=== PATIENT | male | born 1935 | race Caucasian/White ===

== ENCOUNTER 2017-01-06 14:23 | Inpatient (IN) | payer MEDICARE, MEDICAID ==
[~2017-01-06] VITALS: Ht 180.3 cm; Wt 94.8 kg
--- NOTE | ~2017-01-06 | PR ---
[place], [place] PROGRESS NOTE NAME: CORKY SIMMONS SR UNIT #: [id number] ROOM: 316 DOCTOR: BEATRIZ AVILA MD BIRTHDATE: [birth year] DOS: 01/14/2017 CHIEF COMPLAINT: "Morning, I'm so tired." SUMMARY OF THE VISIT: The patient was very somnolent, sitting in a Whitney chair looking at newspaper and watching television. He was dosing on and off. Nurses report, he had a very good day, but as the evening progressed, he became more confused, more verbally and physically combative to the point where he was yelling at the top of his lungs all night long and received p.r.n. intervention without any benefit. He now is somewhat somnolent as he did not sleep well last night. He seems to have his days and nights mixed up. MENTAL STATUS: It is limited due to his somnolence. He was pleasant with me. His responses were very short, however, and simple and at times he did not respond. PLAN: I will continue to push the Exelon patch into a therapeutic range, bringing it from 4.6 to 9.5 mg daily. I will discontinue the daytime Seroquel as his daytime hours seem to be improved, maintaining just the nighttime Seroquel for his mood stability and to decrease impulsivity. I will add trazodone 150 mg at bedtime to aid sleep and to act as an antidepressant. We will engage in individual and hastings milieu activity, returning to the least restrictive environment when stable. BEATRIZ AVILA MD CM:PNTRANS [id number] BEATRIZ AVILA MD 01/14/17 1146 interface
--- NOTE | ~2017-01-06 | PR ---
[place], [place] PROGRESS NOTE NAME: CORKY SIMMONS SR UNIT #: [id number] ROOM: 316 DOCTOR: BEATRIZ AVILA MD BIRTHDATE: [birth year] DOS: 01/12/2017 CHIEF COMPLAINT: "Good morning, is breakfast coming? SUMMARY OF THE VISIT: The patient was interviewed in the dining area where he was sitting waiting for breakfast. He engaged in superficial, but pleasant conversation. He was somewhat negative, but that is baseline, but he did engage in conversation and was much more goal directed. Of note, there were no chanting or yelling noted and overall the nurses report that he is trending strongly towards improvement and that his behavior seems to be improving overall. Nurses do note at times that his nighttime behavior seems to be problematic. MENTAL STATUS: He is alert and oriented to self. He may realize he is in the hospital, but he is certainly not oriented to time. Mood does seem to be trending towards euthymia. Affect is more appropriate. Responses are short and simple and at times inappropriate. He does process slowly and short term memory is poor. PLAN: I will go ahead and increase his Seroquel from 50 mg 3 times a day to 50 mg twice a day and 100 mg at bedtime. My hope is that the slightly higher dose of Seroquel nighttime will aid his sleep and also decrease some of the mood lability that has become problematic at night, helping us limit the use of p.r.n. intervention at nighttime. We will continue to engage him in individual and hastings milieu activity with the ultimate plan to return to [facility] [place] when psychiatrically stable. BEATRIZ AVILA MD CM:PNTRANS [id number] [id number] BEATRIZ AVILA MD 01/12/17 1054 interface
--- NOTE | ~2017-01-06 | PR ---
[place], [place] PROGRESS NOTE NAME: CORKY SIMMONS SR [facility] [id number] UNIT #: [id number] ROOM: 316 DOCTOR: BEATRIZ AVILA MD BIRTHDATE: [birth year] DOS: 01/11/2017 CHIEF COMPLAINT: "Good morning, I want my breakfast." SUMMARY OF THE VISIT: The patient was interviewed as he sat in the dining area waiting for breakfast. He was bright and pleasant with me for a change, stating that he slept well and was ready for his breakfast. I did talk to nursing and they did report that he did require p.r.n. Geodon this morning because he was very irritable and short-fused. He seems to have had a rather significant positive response to the Geodon. He has also had a positive response to the Seroquel and that seems to have caused the yelling and mood swings and irritability to lessen as well. MENTAL STATUS: He is alert and oriented to person, possibly place, but not time. Mood does seem to be trending towards euthymia, and overall his affect seems more pleasant. There are no overt auditory or visual hallucinations, delusions or paranoia. Memory remains severely affected. PLAN: Given the fact that the Seroquel has helped but he requires p.r.n. Geodon with similar benefit, I will increase his Seroquel from 25 mg 3 times a day to 50 mg 3 times a day to see if this can sustain benefit more consistently. We will monitor for risks and benefits. Engage in individual and hastings milieu activity with the plan to return to [facility] when psychiatrically stable. BEATRIZ AVILA MD CM:PNTRANS 1139 BEATRIZ AVILA MD 01/11/17 1138 interface
--- NOTE | ~2017-01-06 | PR ---
[place], [place] PROGRESS NOTE NAME: CORK[facility] SIMMONS SR [id number] UNIT #: [id number] ROOM: 316 DOCTOR: BEATRIZ AVILA MD BIRTHDATE: [birth year] DOS: 01/13/2017 CHIEF COMPLAINT: "Good morning, thank, when is breakfast." SUMMARY OF THE VISIT: The patient was interviewed as he sat in the dining area, reclining in a Whitney chair. He engaged readily in conversation that was bright, but pleasant, is very superficial, responses tended to be short and simple. On another note, the nurses report that his behavior yesterday was very much in control until approximately 6:00 p.m. when he began to gradually escalate. He seems to sundown at that point in time and become verbally and physically aggressive. MENTAL STATUS: This morning, he is alert and oriented to person, not to place or time. Mood was fairly pleasant and bright. There are no symptoms of hypomania or shwetha at this time. There were no overt auditory or visual hallucinations. No delusions were voiced. Short term memory remains poor. PLAN: I will discontinue his Aricept in lieu of Exelon patch at this point. I do believe that this is a much better medication to combat the declining ADLs and behavior seen with Alzheimer's. I will renew his Ativan. I will also change his Depakote from 500 mg 3 times a day to 500 mg in the morning and 1000 mg at 6 p.m. to attempt to head off some of the sundowning symptoms. If this is not effective, we will look at other interventions to prevent the sundowning behavior. BEATRIZ AVILA MD CM:PNTRANS 0722 7 BEATRIZ AVILA MD 01/13/1707 interface
--- NOTE | ~2017-01-06 | PR ---
[place], [place] PROGRESS NOTE NAME: [facility]ORK[facility]S [id number] UNIT #: [id number] ROOM: 316 DOCTOR: BEATRIZ AVILA MD BIRTHDATE: [birth year] DOS: 01/08/2017 CHIEF COMPLAINT: "I just want to sleep you understand that I just want to sleep." SUMMARY OF THE VISIT: The patient was interviewed in his room. He was resting in bed. He was giving the nurse that was working with him a very difficult time to take his medicine. Eventually, he put the medicines in his mouth and then spit them out, he yelled at her and myself stating he just wanted to be left alone and sleep. When I asked him other questions, he again yelled out, I just want to sleep. He was not cooperative beyond that. MENTAL STATUS: It was limited due to his lack of cooperation. He is certainly alert and oriented to self. Mood remains labile. Affect inappropriate. He is very short fused and terse. I did not elicit any psychotic symptoms from him, memory remains poor. PLAN: His valproic acid level is subtherapeutic at 25.7. I will increase him on the Depakote sprinkles to 500 mg 3 times daily in an effort to bring the level into a range of 60-80 and see if we can decrease some of his excessive mood lability. We will attempt to engage in individual and hastings milieu activity with the plan to return to [facility] when psychiatrically stable. BEATRIZ AVILA MD CM:PNTRANS 1115 1205 BEATRIZ AVILA MD 01/08/17 1205 interface
--- NOTE | ~2017-01-06 | PR ---
[place], [place] PROGRESS NOTE NAME: CORKY SIMMONS SR UNIT #: [id number] ROOM: 316 DOCTOR: BEATRIZ AVILA MD BIRTHDATE: [birth year] DOS: 01/10/2017 CHIEF COMPLAINT: "Morning." SUMMARY OF THE VISIT: The patient was interviewed as he rested in his Whitney chair. He was sleeping upon approach, but awoke readily and engaged in very brief superficial conversation. He was much more pleasant and engaging than he had been previously and was not dismissive or negative as he had been. Nurses report that after he was receiving the Seroquel yesterday, he was much calmer and was able to be redirected. He was not yelling out as he had been the previous several days. He slept soundly through the night as well. MENTAL STATUS: The patient is alert and oriented to self. It is unclear if he realizes he is in the hospital. He is certainly not oriented to time. Mood does seem to be trending towards euthymia and affect is more appropriate. There are no symptoms of hypomania or shwetha. There are no auditory or visual hallucinations. No delusions were voiced. No paranoia was present. Short term memory remains poor. PLAN: At the present time, I will maintain his current psychotropic regimen and monitor especially over the next 24 hours to see if this benefit sustains itself or further medication adjustment is warranted. We will engage in individual and hastings milieu activity with the ultimate plan to return back to [facility] when psychiatrically stable. BEATRIZ AVILA MD CM:PNTRANS 1022 [id number] BEATRIZ AVILA MD 01/10/17 1517 interface
--- NOTE | ~2017-01-06 | PR ---
[place], [place] PROGRESS NOTE NAME: CORKY SIMMONS SR UNIT #: [id number] ROOM: 316 DOCTOR: BEATRIZ AVILA MD BIRTHDATE: [birth year] DOS: 01/09/2017 CHIEF COMPLAINT: "Good morning, I don't want to talk this morning." SUMMARY OF THE VISIT: The patient was interviewed in the group therapy room where he was reclining in a Whitney chair. He was resting at first, but did awake initially to engage in brief conversation. He continues to be rather confrontational and irritable and reported to me that he did not want to talk to me this morning. Nurses report he continues to have significant outbursts throughout the day where he will yell nonstop and does not respond to redirection. have minimal to no affect. He continues to exhibit extreme mood lability, agitation and episodic aggression. MENTAL STATUS: It is limited due to his total lack of cooperation. He is at least oriented to self. It is unclear if he realizes he is in the hospital and he does not appear to be oriented to time. Mood does seem to be rather labile and affect at times inappropriate. He shifts his mood very quickly and overall is more negative and nihilistic. He does process slowly and his responses tended to be short and terse with me. Short term memory does seem to be affected and is very poor. PLAN: I will go ahead and discontinue his Nuedexta. This has been present with him and he continues to exhibit significant psychopathology despite it being on board. By discontinuing it, it will allow me to use other medications more aggressively. I will add Seroquel 25 mg 3 times daily to have a mood stabilizing affect, to decrease his mood lability and agitation. We are also providing some level of antianxiety effect. We will engage in individual and hastings milieu activity with the plan to return to [facility] when psychiatrically stable. BEATRIZ AVILA MD CM:PNTRANS 0836 1250 BEATRIZ AVILA MD 01/09/17 1250 interface
--- NOTE | ~2017-01-06 | DS ---
[place], [place] DISCHARGE SUMMARY NAME: CORK[facility] SIMMONS [facility] [id number] UNIT #: [id number] ROOM: 316 DOCTOR: BEATRIZ AVILA MD BIRTHDATE: [birth year] DOS: 01/15/2017 CHIEF COMPLAINT: "Where am I, why am I here, where is my ?" HISTORY OF PRESENT ILLNESS: This is an 81-year-old white male known to me from [facility] in [place], [place]. The patient is admitted to the [facility] Unit at [facility] due to increased sexually inappropriate behavior as well as increased yelling out and mood lability. The patient's behavior has been such that he is putting other residents and staff at risk for harm, so he is admitted now to rule out organic factors to attempt to stabilize on medication, ultimately returning back to [employer] when stable. PAST MEDICAL HISTORY: Remarkable for vascular dementia, atrial fibrillation, hyperlipidemia, hypertension, diabetes, left bundle branch block, sick sinus syndrome, V-tach, CAD, OA, and pseudobulbar affect. SUMMARY OF HOSPITAL COURSE: The patient was admitted to the unit where initially his Depakote was increased from 125 mg 3 times daily to 250 mg twice daily and 500 mg at bedtime, Celexa was discontinued and his Nuedexta likewise was discontinued. Aricept later in his stay was discontinued in lieu of Exelon patch 4.6 mg a day and this was increased to its maximum dose while in the hospital of 9.5. He continued to have his days and nights mixed up and would be up through the night, screaming and then be very tired during the day and napping. He had been started on Seroquel 50 mg 3 times daily and this was increased later to 50 twice a day and 100 at bedtime, later it was maintained just 100 at bedtime and the daytime dose was discontinued to prevent the possibility of daytime somnolence. Eventually trazodone was utilized at a dose of 150 mg at bedtime to aid sleep and combat depression. With this combination, he slept finally through the night consistently for good 6 hours. He woke up the next day feeling much more refreshed and was much calmer and quieter and redirectable. He had improved sufficiently by the time of discharge and was tolerating the medications well and it was felt that he could return to [employer] at this point and have further followup by myself and by my nurse practitioners. MENTAL STATUS AT DISCHARGE: The patient is alert and oriented to person, possibly place, but not time. Mood does seem to be strongly trending towards euthymia and affect was much more appropriate. There are no symptoms suggestive of shwetha or hypomania. There are no auditory or visual hallucinations, delusions or paranoia. Short-term memory is exceedingly poor, otherwise he is intact. FINAL DIAGNOSES: Major depression, recurrent, and Alzheimer's dementia. PLAN: All prescriptions have been printed and will be sent with him. I will follow him upon his return to [employer]. [place], [place] DISCHARGE SUMMARY NAME: CORKY SIMMONS SR [facility] #: [id number] UNIT #: [id number] ROOM: [facility] DOCTOR: BEATRIZ AVILA MD BIRTHDATE: [birth year] BEATRIZ AVILA MD CM:DISCHARG 0945 1133 BEATRIZ AVILA MD 01/15/17 1132 interface
[2017-01-06] MEDS ORDERED: VISTARIL25 MG PO (14:54)
[2017-01-06] MEDS ORDERED: NOVOLIN 70100 UNIT/1 SQ ×2 (14:57→15:07)
[2017-01-06] MEDS ORDERED: DEEP SEA44 ML NAS ×2 (14:59→15:14)
[2017-01-06] MEDS ORDERED: TOPROL XL50 M1 PO (15:00)
[2017-01-06] MEDS ORDERED: VITAMIN D50000 UNIT PO (15:01)
[2017-01-06] MEDS ORDERED: NAMZARIC 28 MG1 EACH PO (15:04)
[2017-01-06] MEDS ORDERED: DEPAKOTE SPRIN125 MG PO (15:05)
[2017-01-06] MEDS ORDERED: NUED1CAP PO (15:05)
[2017-01-06] MEDS ORDERED: XARE20MG PO (15:09)
[2017-01-06] MEDS ORDERED: ATIVAN0.5 MG PO ×2 (15:10→15:16)
[2017-01-06] MEDS ORDERED: ATIVAN1 MG PO (15:10)
[2017-01-06] MEDS ORDERED: CELEXA20 MG PO (15:11)
[2017-01-06] MEDS ORDERED: DAILY VALUE1 EACH PO (15:12)
[2017-01-06] MEDS ORDERED: COZAAR100 MG PO (15:13)
[2017-01-06 16:43] VITALS: BP 130/62
--- NOTE | 2017-01-06 17:00 | NUR ---
PATIENT IS ALERT AND ORIENT TO SELF, ABLE TO VOICE NEED. DIFFICULTY NOTED DURING ASSESSMENT WITH ANSWERING QUESTIONS WITH CONFUSION, WANTING TO KNOW WHAT IS GOING ON REPEATEDLY. YELLING MOST OF THE TIME, REDIRECTED SEVERAL TIMES THROUGHTOUT INTERVIEW PROCESS, SHOWING FIST AND VERBALLY AGGRESSIVE TOWARDS NURSE; 1:1 PROVIDED, DRINK OFFERED AND MEAL ORDERED. DR. SCHWARZ ON UNIT TO ASSESS PATIENT. PRN ATIVAN 1 MG PO GIVEN AT THIS TIME FOR VERBAL AGGRESSION AND SHOWING FIST TO THREATENING STAFF.
--- NOTE | 2017-01-06 17:45 | NUR ---
ASSISTED PATIENT TO ROOM AND FOR TOILETING NEEDS. URINE COLLECTED VIA CLEAN CATCH, STRAW COLOR URINE WITH NO SEDIMENT AND COLLECTION SENT TO LAB. ASSISTED PATIENT TO BED AT THIS TIME.
--- NOTE | 2017-01-06 17:57 | NUR ---
IRIS CRUZ,CORKY Rizo a 81 year old M admitted via wheel chair from the ADMITTING as a voluntary admission BY VALERY. Arrived on unit at 1630. ALLERGIES: NKA. Vital signs are: 98.2-78-18 130/62. The client signed the following forms with stated understanding: Authorization For The Release of Medical Information, Clothing List, Consent to Voluntary Admission and Hospitalization, Consent and Release Forms/Receipt of Rights, Acknowledgement of Advance Directive Information, Behavioral Health Consent Form, and Informed Consent of Medications. Admitted under the services of Dr. AUSTIN HOPPER,[facility]. A search was conducted and hazardous articles were removed. Client was oriented to the unit. TODD WILL
--- NOTE | 2017-01-06 18:05 | NUR ---
PRN ATIVAN EFFECTIVE, PATIENT LYING IN BED, NO FURTHER AGGRESSION OR YELLING OUTBURST NOTED AT THIS TIME.
[2017-01-06 18:19] LABS: BILIRUBIN NEGATIVE (NEGATIVE); BLOOD TRACE-INTACT (NEGATIVE); CLARITY CLEAR (CLEAR); COLOR YELLOW (YELLOW); GLUCOSE NEGATIVE (NEGATIVE); KETONE TRACE (NEGATIVE); LEUKO ESTERASE NEGATIVE (NEGATIVE); NITRITE NEGATIVE (NEGATIVE)
[2017-01-06 18:36] LABS: BACTERIA TRACE; RBC 0-2 rbc/hpf (0-2)
[2017-01-06 20:25] VITALS: BP 149/75
--- NOTE | 2017-01-07 04:24 | NUR ---
NURSE WAS MAKING ROUNDS. NOTED PT GETTING UP OUT OF BED. PT PULLED HIS PERSONAL ALARM OFF HIMSELF AND CONTINUED TO GET OUT OF BED. PT WAS ASSISTED TO THE RESTROOM AND BACK TO BED.
--- NOTE | 2017-01-07 06:09 | NUR ---
PT SLEPT APPROXIMATELY 7 HOURS INTERRUPTED THIS SHIFT. NO S/S OF DISTRESS NTOED. NO C/O PAIN. Q15 MINUTE SAFTEY CHECKS MAINTAINED. SEE [facility] FOR SPECIFIC MONITORING. PT YELLING I WANT TO GO HOME AND YELLING OUT FOR HIS . EASILY REDIRECTED. PT HAS BEEN NOTED TO BE REMOVING HIS PERSONAL ALARMS. RETAUGHT PT ABOUT HIS ALARMS AND THE SAFETY OF THEM.
--- NOTE | 2017-01-07 06:12 | NUR ---
24 HR chart check completed.
[2017-01-07 06:29] LABS: BASO % 0.7 % (0.0-1.0); EOS # 0.2 10*3/uL (0.0-0.4); EOS % 3.4 % (1.0-4.0); HEMATOCRIT 37.4 % (42.0-52.0); HEMOGLOBIN 12.3 g/dl (14.0-18.0); LYMPH # 1.9 10*3/uL (1.3-4.4); LYMPH % 32.8 % (27.0-41.0); MEAN CELL VOLUME 87.6 fl (80.0-94.0); MEAN CORPUSCULAR HGB 28.8 pg (27.0-31.0); MEAN CORPUSCULAR HGB CONC 32.9 g/dl (33.0-37.0); MEAN PLATELET VOLUME 10.4 fl (9.6-12.3); MONO # 0.7 10*3/uL (0.1-1.0); MONO % 11.5 % (3.0-9.0); NEUT % 51.4 % (47.0-73.0); PLATELET COUNT AUTOMATED 166 10*3/uL (130-400); RED BLOOD COUNT 4.27 10*6/uL (4.50-5.90); RED CELL DISTRI WIDTH 13.9 % (0-14.5); WHITE BLOOD COUNT 5.9 10*3/uL (4.8-10.8)
[2017-01-07 06:59] LABS: ALBUMIN 2.8 gm/dl (3.1-4.5); ALKALINE PHOSPHATASE 59 U/L (45-117); BUN 15 mg/dl (7-24); CHLORIDE 104 mmol/L (98-107); CHOLESTEROL 124 mg/dL (<200); HDL CHOLESTEROL 38 mg/dl (40-60); LDL CHOLESTEROL 67 mg/dL (9-159); POTASSIUM 4.5 mmol/L (3.5-5.1); SGOT/AST 29 IU/L (3-35); SGPT/ALT 22 U/L (12-78); SODIUM 141 mmol/L (136-145); TOTAL PROTEIN 6.2 gm/dL (6.4-8.2); TRIGLYCERIDES 94 mg/dl (<150); VALPROIC ACID (DEPAKENE) 25.7 ug/ml (50-100); VLDL CHOLESTEROL 19 mg/dL (6-40)
[2017-01-07 07:18] LABS: VITAMIN D, 25-HYDROXY 34.9 ng/mL (30-100)
[2017-01-07 08:07] VITALS: BP 143/78
--- NOTE | 2017-01-07 08:48 | NUR ---
PT WALKING UP AND DOWN THE [place] SCREAMING FOR HIS , PT NOT REDIRECTING AT ALL, TRIED TO REDIRECT SEVERAL TIMES, PT IS BEING DISRUPTIVE, INTRUSIVE, PT RECEIVED IM AVITAN, WILLINGLY.
--- NOTE | 2017-01-07 17:38 | NUR ---
1 MG IM ATIVAN GIVEN IN LEFT DELTOID, PT GETTING INCREASINGLY RESTLESS, AGGITATED, PULLED U FIST TO MILEU, PICKED UP WALKER TO [facility] TO STRIKE HER. PT TOOK ATIVAN WILLNGLY
--- NOTE | 2017-01-07 21:00 | NUR ---
HS BEDSIDE GLUCOSE 241
[2017-01-07 21:15] VITALS: BP 120/68
--- NOTE | 2017-01-07 23:05 | NUR ---
24 HR chart check completed.
--- NOTE | 2017-01-08 06:11 | NUR ---
PT HAS BEEN OBSERVED ON Q 15 MIN CHECKS & HAS SLEPT QUIETLY THROUGHOUT THE SHIFT PAST 2099.
--- NOTE | 2017-01-08 06:13 | NUR ---
PT HAS BEEN OBSERVED ON Q 15 MIN CHECKS & HAS SLEPT WITH 3 BRIEF AWAKENINGS TO GO TO THE BATHROOM WITH STAFF ASSISTANCE. CONTINENT OF URINE X3. HAS YELLED OUT A FEW TIMES FOR HIS & HAS BEEN REDIRECTED.
--- NOTE | 2017-01-08 06:55 | NUR ---
AM BEDSIDE GLUCOSE 80
[2017-01-08 09:37] VITALS: BP 132/62
--- NOTE | 2017-01-08 09:57 | NUR ---
PT REFUSED NASAL SPRAY, SPIT 1 PILL OUT ON FLOOR.
--- NOTE | 2017-01-08 13:44 | NUR ---
Socializing This is sunday with new patients. I like to talk with patients to find out thier likes and dislikes, if they have children or pets etc.. Patient was in bed when i tried to encourage patient to attend group. Patient was very agitated and refused yelling that he was not coming he wanted to sleep. Patient was left alone to sleep
--- NOTE | 2017-01-08 14:04 | NUR ---
Marsha from [employer] called back and states that pt. is traditional medicare and will not need a pre-cert.
--- NOTE | 2017-01-08 14:32 | NUR ---
PT YELLING OUT, RAISING FIST AT STAFF. 1:1 GIVEN, SNACK GIVEN, PT TOILETED, ALL INTERVENTIONS INEFFECTIVE. PT MEDICATED WITH GEODON 20 IM PRN.
--- NOTE | 2017-01-08 16:00 | NUR ---
GEODON SLIGHTLY EFFECTIVE. PT YELLING OUT LESS FREQUENTLY.
[2017-01-08 20:00] VITALS: BP 119/55
--- NOTE | 2017-01-08 21:00 | NUR ---
HS BEDSIDE GLUCOSE 209
--- NOTE | 2017-01-08 22:10 | NUR ---
EXTREMELY DISRUPTIVE TO UNIT. CONTINUES TO SCREAM OUT "JADE" HAVE WALKED TO BATHROOM 3 TIMES SINCE 8PM WITH VOIDING ONLY ONCE. UNABLE TO REDIRECT. INCREASED AGGITATION AND FLIPPING NURSES OFF WHEN REDIRECTED. MOVED TO MARVA CHAIR AND QUIET ROOM MANY CLIENTS COMPLAINING ABOUT BEING UNABLE TO SLEE.
--- NOTE | 2017-01-08 22:55 | NUR ---
GEODON GIVEN PER ORDERS FOR INCREASED AGGRESSION
--- NOTE | 2017-01-08 23:31 | NUR ---
APPEARS GEODON EFFECTIVE. EYES CLOSED. RESP EASY NONLABORED
--- NOTE | 2017-01-09 01:10 | NUR ---
CALIN MINIMALLY EFFECTIVE. PT CONTINUES TO YELL OUT FREQUENTLY. HAS BEEN ASSISTED TO THE BATHROOM TO VOID & BEEN CONTINENT & INCONTINENT.MEDICATED WITH ATIVAN 1 MG IM @ 0104.
--- NOTE | 2017-01-09 05:57 | NUR ---
ATIVAN WAS NOT EFFECTIVE UNTIL 344 WHEN PT WAS NOTED TO FINALLY BE RESTING QUIETLY.
--- NOTE | 2017-01-09 06:56 | NUR ---
AM BEDSIDE GLUCOSE 71
--- NOTE | 2017-01-09 08:08 | NUR ---
MARIN This game is very social and gets everyone talking laughing and thinking. Patient did not attend group patient was in his room. Patient screams quite often and is very confused.
[2017-01-09 08:54] VITALS: BP 130/50
--- NOTE | 2017-01-09 15:01 | NUR ---
Oskar has not exhibited any aggressive behavior thus far today. He is however, limited in verbalization and @ times exhibits some irritability when approached. He is compliant with his prescribed medications. Oriented to self and has frequently questioned staff, "How long an I going to be here?" He requires assistance with ADL's due to his cognitive impairment. Assisted to bathroom by two staff members and exhibited marked difficulty with ambulation @ that time. He was noted to be sleeping through breakfast, however he did eat lunch with a good appetite. Due to glucometer reading of 71 am insulin was not administered. 11:30 glucometer reading @ 108. No overt s/s of sensory disturbances are noted during time spent him thus far. Confusion is present. Refer to [facility] flowsheet for specific monitoring.
--- NOTE | 2017-01-09 21:00 | NUR ---
HS BEDSIDE GLUCOSE 194
[2017-01-09 21:12] VITALS: BP 115/56
--- NOTE | 2017-01-09 22:12 | NUR ---
24 HR chart check completed.
--- NOTE | 2017-01-10 06:22 | NUR ---
PT HAS BEEN OBSERVED ON Q 15 MIN CHECKS & HAS SLEPT QUIETLY THROUGHOUT THE SHIFT PAST 2144.
--- NOTE | 2017-01-10 06:48 | NUR ---
AM BEDSIDE GLUCOSE 74
--- NOTE | 2017-01-10 08:17 | NUR ---
Exercise/Trivia-Morning Group BINGO-afternoon group Morning group of exercise helps paitients with joint mobility and staying active,Trivia helps with focusing,socializing,thinking and self esteem. Afternoon group of BINGO helps with socializing, focusing, thinking and self esteem. This patient did not attend morning group. Patient was in quiet room sleeping. Patient was in attendence for afternoon grou but did not participate. Patient was again sleeping in his chair. Unable to wake patient
[2017-01-10 08:19] VITALS: BP 133/67
--- NOTE | 2017-01-10 10:30 | NUR ---
SW RECEIVED CALL FROM SON CORKY. SW UPDATED SON ON PT'S CONDITION.
--- NOTE | 2017-01-10 10:40 | NUR ---
WESLEY RECEIVED CALL QUIN PAULA REQUESTING UPDATED INFORMATION. WESLEY WILL SEND ON SUNDAY. WESLEY INFORMED ABBY THAT PT PENDING DISCHARGE SUNDAY OR SUNDAY.
--- NOTE | 2017-01-10 13:41 | NUR ---
Assessment-Oskar is too confused,yelling out. Could not complete assessment
--- NOTE | 2017-01-10 16:05 | NUR ---
Oskar is limited in verbalization during interactions with staff. No aggressive behavior has been noted, though some irritability is underlying @ intervals. He has required maximal assistance of two to transfer for toileting. Gait is extremely unsteady. Fall precautions continue for safety. Energy level is low with intermittent napping. Appetite is good. He is noted to feed himself meals with a good appetite. Understanding of current issues limited due to cognitive impairment. Dr. Vargas in to see him with no other orders @ this time. Refer to [facility] flowsheet for specific monitoring. Also refer to process intervention screen for glucometer testing results throughout the day.
[2017-01-10 20:16] VITALS: BP 138/62
--- NOTE | 2017-01-10 23:45 | NUR ---
PATIENT AGITATED AND STRIKING OUT AT STAFF. PATIENT MEDICATED WITH GEODON 20MG IM WITH EFFECTIVE RESULTS. PATIENT ALSO TOILETED AND CONTINENT OF BLADDER. MEDICATION COMPIANT
--- NOTE | 2017-01-11 05:05 | NUR ---
B: AGGRESSION I: THERAPEUTIC COMMUNICATION, 1:1 R: GET ME UP, I'LL HIT YOU P: MEDICATIION COMPLIANCE, IDENTIFY COPING SKILLS FOR DECREASE AGGRESSION, PARTICIPATE IN GROUP ACTIVIITIES
--- NOTE | 2017-01-11 05:45 | NUR ---
24 HR chart check completed.
--- NOTE | 2017-01-11 05:55 | NUR ---
Q 15 MINUTE SAFETY CHECKS MAINTAINED. SLEPT > 7 HOURS THROUGHOUT SHIFT
[2017-01-11 07:59] VITALS: BP 143/79
--- NOTE | 2017-01-11 08:32 | NUR ---
Exercise/Letter to yourself-Morning group. This helps patients stay active self esteem, coping skills,focusing creativity while decorating card. BINGO-Afternoon group. Helps with focusing,concentration,self esteem,socializing and team work Patient was in attendence for both morning and afternoon groups but did not participate. Patient was asleep during the morning grup and couldnt be woken. When asked by another patient if he was playing BINGO patient became agitated yelling he was trying to sleep.
--- NOTE | 2017-01-11 10:04 | NUR ---
MEDICATION COMPLIANT WITHOUT DIFFICULTY. APPETITE GOOD FOR BREAKFAST, ATE 100% AND TAKING FLUIDS WELL. VERBALIZING WANTING TO SLEEP AFTER BREAKFAST. CHAIR RECLINED PER REQUEST. PT NOW RESTING WITH EYES CLOSED. RESPIRATIONS EASY AND EVEN. NO DISTRESS NOTED.
--- NOTE | 2017-01-11 10:54 | NUR ---
Patient not available for Occupational Therapy evaluation this date as he is in group therapy session. OTR will attempt at a later date. Thank you for this referral. Leah Navarrete OTR/Cristina
--- NOTE | 2017-01-11 10:56 | NUR ---
PHYSICAL THERAPY PAtient evaluated on 3, full evaluation to follow. Continue with PT as per plan of care with fall and decreased safety awareness precautions. PAtient is moderate complexity via chart review, tests and evaluation: [id number]. Home with as prior 13/11 and home health RN and PT prn. Thank you for this referral. Rosalie Ambrose,PT
--- NOTE | 2017-01-11 11:16 | NUR ---
PHYSICAL THERAPY PAtient at group at this time. Thank you for this referral. Rosalie Ambrose,PT
--- NOTE | 2017-01-11 13:05 | NUR ---
Exercise/Reminiscing This is a good group to help patients stay active since most of the day they sit ot lay in bed. It also helps with the memory,with thinking, concentration, and socializing. This patient attended group as well as participated. Patient joined in exercsing for approxamatly 3/4 of it then using foul language and pounding on his tray table he began yelling he didnt want to exercise anymore. Calmed sari then explain not to use that language please and that he did not have to participate if he did not want to. Patient sat calmsanjay while we finished.Patient joined in during reminiscing but could not remember some of his childrens names. When listening to another patient talk about different cakes she baked he yell out "well where is it?" then "I"m hungry." patient has progressed quite a bit since the day before
--- NOTE | 2017-01-11 16:32 | NUR ---
PATIENT IS PLEASANTLY CONFUSED THIS SHIFT. ALERT AND ORIENTED TO SELF ONLY WITH ST/LT MEMORY DEFICITS NOTED. NO HALLUCINATIONS, DELUSIONS, OR BEHAVIORS NOTED THIS SHIFT. APPETITE GOOD FOR MEALS. TAKING FLUIDS WELL. MEDICATION COMPLIANT WITHOUT DIFFICULTY. CALM AND COOPERATIVE WITH STAFF AND HOC. FREQUENTLY REQUIRES REPORIENTATION WHICH IS EFFECTIVE FOR SHORT PERIODS OF TIME. NO SEXUALLY INAPPROPRIATE BEHAVIORS NOTED. ABLE TO ALERT STAFF WHEN HE NEEDS TO USE THE BATHROOM. CONTINENT OF B&B THIS SHIFT. 1 MODERATE ASSIST REQUIRED FROM STAFF FOR ADLS. NO SIDE EFFECTS/ EPS NOTED FROM MEDICATIONS. RESPIRATIONS EASY AND EVEN. NO ACUTE DISTRESS NOTED.
[2017-01-11 19:43] VITALS: BP 136/72
--- NOTE | 2017-01-11 19:59 | NUR ---
[facility] WESLEY CALLED TO LET HER KNOW AND SPOKE WITH CARMENZA. CARMENZA WILL MAKE SURE ABBY GETS FAX.
--- NOTE | 2017-01-11 22:48 | NUR ---
PT UP AND DOWN OUT OF BED, REPEATEDLY YELLING OUT, 1:1 INEFFECTIVE. PT HAS INCREASED ANXIETY AND IS UNABLE TO SLEEP AT THIS TIME. PRN GEODON 20 MG IM GIVEN TO DECREASE ANXIETY AND HELP PT SLEEP. WILL MONITOR EFFECTIVENESS OF MEDICATION.
--- NOTE | 2017-01-11 23:50 | NUR ---
TEEN CYNTHIADON EFFECTIVE AT THIS TIME. PT IS NOT YELLING OUT MUCH BEFORE. RESTING QUIETLY IN BED WITH PERIODS OF YELLING OUT NOTED. WILL CONTINUE TO MONITOR EFFECTIVENESS OF MEDICATION.
--- NOTE | 2017-01-12 01:16 | NUR ---
24 HR chart check completed.
--- NOTE | 2017-01-12 01:17 | NUR ---
PT UP AND DOWN OUT OF BED, YELLING OUT REPEATEDLY. PT PLACED IN MARVA CHAIR AND MOVED TO QUIET ROOM NEAR THE NURSES STATION FOR IN VIEW . PT CONTINUES TO YELL OUT.
--- NOTE | 2017-01-12 01:26 | NUR ---
PT MEDICATION COMPLIANT. INTERMITTENLY YELLING OUT. DENIES SI, HI, DELUSIONS, AND HALLUCINATIONS. PT YELLS OUT THE NAME OF HIS , SABRA, REPEATEDLY. PT WILL STOP YELLING OUT WHEN A STAFF MEMBER IS PRESENT AND WILL CONTINUE ONCE STAFF MEMBER LEAVES. Q15 MINUTE SAFETY CHECKS MAINTAINED. NO S/S OF DISTRESS NOTED. NO C/O PAIN. WILL CONTINUE TO MONITOR EFFECTIVENESS OF MEDICATION GIVEN.
--- NOTE | 2017-01-12 01:57 | NUR ---
PT REPEATEDLY YELLING OUT, UNABLE TO REDIRECT. PT DISRUPTING THE ENTIRE UNIT WAKING OTHER PATIENTS UP. PRN ATIVAN 1MG IM GIVEN AT THIS TIME TO DECREASE BEHAVIORS AND ANXIETY. PT YELLING OUT HE HAS TO GO TO THE BATHROOM AND HAS BEEN TOILETED EVERY 30 MINUTES FOR THE LAST 4 HOURS. PT HAS BEEN CONTINENT EACH TIME. 1:1 INEFFECTIVE. WILL MONITOR EFFECTIVENESS OF MEDICATION.
--- NOTE | 2017-01-12 02:57 | NUR ---
PRN NOT EFFECTIVE AT THIS TIME. WILL CONTINUE TO MONITOR EFFECTIVENESS OF MEDICATION.
--- NOTE | 2017-01-12 03:35 | NUR ---
PRN EFFECTIVE AT THIS TIME. PT RESTING QUIETLY IN MARVA CHAIR.
--- NOTE | 2017-01-12 04:40 | NUR ---
PT IS REPEATEDLY YELLING OUT AT THIS TIME.
--- NOTE | 2017-01-12 06:17 | NUR ---
PT SLEPT APPROXIMATELY 3 HOURS THIS SHIFT. PT REMAINS LABILE AND CONTINUES TO YELL OUT. NO S/S OF DISTRESS NOTED. NO C/O PAIN. SEE [facility] FLOWSHEET FOR SPECIFIC MONITORING.
--- NOTE | 2017-01-12 08:02 | NUR ---
Seasons/Reminiscing-Afternoon (01/11/17) this will help with memory,concentration, thinking and socialization.Patient did attend group as well as participated. Patient shared various memories of [place]. Patient was very pleasent and appropriatate through out group. Patient expressed no irratation or agravation. Even caught patient grinning a few times
[2017-01-12 08:05] VITALS: BP 160/67
--- NOTE | 2017-01-12 08:45 | NUR ---
TREATMENT TEAM WAS HELD WITH THE FOLLOWING: DR. AVILA RN.SW.AT. PENDING DISCHARGE FOR SUNDAY OR SUNDAY. DR. AVILA MAY D/S PRNS.
--- NOTE | 2017-01-12 10:40 | NUR ---
PHYSICAL THERAPY PAtient evaluated on three, full evaluation to follow. Continue with PT as per plan of care with fall, unit three and mod (A) precautions as well as alarms precautions. May require SNF in order to return to PLO[facility]. PAtient is moderate complexity via chart review, tests and evaluation: 73825. Thank you for this referral. Rosalie Ambrose,PT
--- NOTE | 2017-01-12 10:53 | NUR ---
Occupational Therapy evaluation completed this date on 3 with full eval to follow. Precautions include fall risk, ww use, personal alarm, 3N, impaired cognition, moderate complexity level [id number]. Recommend OT per POC and return to [facility] at [facility]. Thank you for this referral. Leah Navarrete OTR/l
--- NOTE | 2017-01-12 13:35 | NUR ---
Exercise/Independent activity Exercise helps patient stay active, with circulation and joints mobile Independent Activity helps a patient with choices thinking and concentration. Patient did attend group. Patient was asleep in his chair. Patient woken up and asked if he was joining excerise today and patient stated "I dont think so. Not today." and went back to sleep
--- NOTE | 2017-01-12 14:55 | NUR ---
PT ALERT TO PERSON ONLY. PT MED COMPLIANT WITHOUT DIFFICULTY. NO HALLUCIANTIONS OR DELUSIONS NOTED. PT DENIES ANY HOMICIDAL/SUICIDAL THOUGHTS. PT CAN BE IRRITABLE AT TIMES. PT CONTINENT OF BOWEL AND BLADDER WITH EPISODES OF INCONTINENCE NOTED, CARE PROVIDED NEEDED. PLAN IS TO ENCOURAGE PT TO PARTICIPATE IN GROUPS/ACTIVITIES, MONITOR BEHAVIORS ON Q15 MIN SAFTEY CHECKS.
--- NOTE | 2017-01-12 17:42 | NUR ---
ON UNIT TO ASSESS PT. AFTER LEFT PT GRABBED DINING TABLE AND BEGAN SHAKING IT. THIS NURSE INTERVENED, PT ATTEMPTED TO SLAP THIS NNURSE. PT BEGAN YELLING OUT, " I WANT THAT MAN TO COME BACK, HE'S SUPPOSED TO LOOK AT ME." ADVISED PT THAT DID ASSESS HIM, AND HE IS IN THE HOSPITAL TIL OR SUNDAY WHEN DISCHARGES HIM. PT BEGAN YELLING OUT "YOU'RE GOING TO GET IT." SEPERATED PT FROM PEERS TO CALM, 1:1 GIVEN.
[2017-01-12 20:09] VITALS: BP 108/57
--- NOTE | 2017-01-12 21:54 | NUR ---
PT YELLING OUT MAAM AND THIS NURSE WENT TO CHECK ON PT. PT ASKED WHERE HIS DAUGHTER WAS AND STATED SHE WAS SUPPOSE TO COME TODAY. EXPLAINED TO PT PHONE PRIVILEGES ARE FROM 9-9. PT POINTED FINGER AT THIS NURSE AND POKED THIS NURSE IN THE STOMACH AND SAID ITS YOUR FUCK UP. I EXPLAINED TO PT HE COULD NOT TALK LIKE THAT OR ACT OUT IN AN AGGRESSIVE MANNER AND I WOULD TALK TO HIM WHEN HE CALMED DOWN. PT THEN YELLED OK I WILL ACT SENSIBLE. THIS NURSE WENT BACK TO TALK TO PT AGAIN AND PT TALKED CIVIL FOR ABOUT 5 MINUTES AND CONTINUED TO RAISE HIS VOICE. EXPLAINED TO PT AGAIN HE CAN NOT YELL AT STAFF OR OTHER PEERS. PT APPEARS CONFUSED AND NOT REDIRECTABLE. 1:1 IS INEFFECTIVE. PT IS YELLING OUT VERY LOUDLY AND DISRUPTING THE ENTIRE UNIT. SNACK PROVIDED TO PT X2.
--- NOTE | 2017-01-12 22:11 | NUR ---
PT YELLING OUT AND 1:1 IS NOT EFFECTIVE. PT ASKED FOR US TO CALL HIS STEP FATHER TO WORK THIS OUT AND STATING HIS FRIEND WAS SUPPOSE TO COME HERE AND NOT HIM. ATTMEPTED TO REORIENT PT AND WAS INEFFECTIVE. PT WANTS THIS NURSE TO CALL HIS WIFES BOYFREIND TO STRAIGHTEN THIS OUT. PT ATTEMPTED TO PICK LEG UP TO KICK AT THIS NURSE AND WAS NOT SUCCESSFUL. THIS NURSE STEPPED BACK AND PT ASKED WHY ARE YOU MOVING AWAY FROM ME. EXPLAINED TO PT HE CAN NOT KICK ANYONE. PT IS VERY CONFUSED AND HAS SHORT AND LONG-TERM MEMORY DEFICITS. PT PLACED IN MARVA CHAIR BECAUSE HE CONTINUES TO WHEEL HIMSELF IN HALLWAY AND CONTINUES TO YELL TO DISRUPT THE ENTIRE UNIT. 1:1 CONTINUED WITH NO EFFECT.
--- NOTE | 2017-01-12 22:43 | NUR ---
PT IS RESTING QUIETLY AT THIS TIME IN THE MARVA CHAIR.
--- NOTE | 2017-01-13 03:30 | NUR ---
PT REMAINS IN MARVA CHAIR SITTING QUIETLY IN THE ACTIVITY ROOM WITH HIS EYES CLOSED.
--- NOTE | 2017-01-13 06:13 | NUR ---
PT SLEPT GREATER THAN 6 HOURS. NO S/S OF DITRDD NOTED. NO C/O PAIN. SEE [facility] FLOWSHEET FOR SPECIFIC MNITORING. Q15 MINUTE SAFETY CHECKS MAINTAINED.
[2017-01-13 09:07] VITALS: BP 98/50
[2017-01-13 10:32] VITALS: BP 122/84
--- NOTE | 2017-01-13 14:10 | NUR ---
PATIENT IS PLEASANTLY CONFUSED PER USUAL. NO HALLUCINATIONS, DELUSIONS, OR BEHAVIORS NOTED. MOOD IS STABLE WITH FLAT AFFECT. MEDICATION COMPLIANT WITHOUT DIFFICULTY. NAPS INTERMITTENTLY THROUGHOUT THE DAY. ENCOURAGED TO STAY AWAKE TO NOT DISTURB SLEEP/WAKE CYCLE, MINIMALLY EFFECTIVE. FREQUENT REPORIENTATION T/O SHIFT WITH GOOD EFFECT FOR SHORT PERIODS OF TIME. ABLE TO VOICE NEEDS AND WANTS TO STAFF. MODERATE 1 ASSIST WITH ADLS. APPETITE GOOD FOR LUNCH. TAKING FLUIDS WELL. RESPIRATIONS EASY AND EVEN. NO ACUTE DISTRESS NOTED.
--- NOTE | 2017-01-13 14:19 | NUR ---
Shift chart check completed.
[2017-01-13 20:19] VITALS: BP 128/76
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
--- NOTE | 2017-01-13 21:47 | NUR ---
PT CONTINUES TO SCREAM "GET ME IN THERE QUICKER OR I'M GOING TO PISS MYSLEF, GET ME THE HELL OUT OF HERE WHERE ARE WE GOING ON WHERE IS MY GRANDFATHER, WHY HASNT ANYONE CALLED MY GRANDFATHER FROM [place]." PT PROVIDED WITH HYGIENE AND TOILITING, REFUSING FOOD AND FLUIDS
--- NOTE | 2017-01-13 22:30 | NUR ---
PT CONTINUES TO YELL OUT "CHINO MAGANA, CHINO LÓPEZN IT LISTEN TO ME HELP ME" 1-1 AND REDIRECTION INEFFECTIVE. CALL PLACED TO JERMAN MCMILLAN CONCERNING PRN USE DUE TO PREVIOUS DELAYED SEDATIVE EFFECTS. JERMAN REQUESTED ORAL GEODON ORDERED, CURRENT PRN ORDERS REVIEWED AND REMINDED THAT PO GEODON IS NOT ONE OF OUR ORDER SETS AND THAT PO ATIVAN AND IM ATIVAN FOLLOWED BY IM GEODON IF INEFFECTIVE WITH IN 20 MINUTES X2 WITH WITNESS OF SECOND NURSE LEXY DOWNING AND ALSO NURSING TALEND ETL DEVELOPER TO WITNESS NOW ORDER OF GEODON 20 MG PO NOW.
--- NOTE | 2017-01-14 00:27 | NUR ---
24HR CHART CHECKS COMPLETE
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
--- NOTE | 2017-01-14 01:07 | NUR ---
PT SCREAMING " GOD DAMN SUN OF A BITHCH, KAIA DAMN SUN OF A BITCH, GOD DAMN SON OF A BITCH, YOU GOD DAMNED MOTHER MIRNA, LET ME TALK TO SOMEBODY WITH SOME SENCE CHINO, CHINO, CHINO GOD DAMN SON OF A BITCH...HECHARLES..... HELLLLLFLORINDA. AHHHAAAAHAHAHAHA, AHHHAHAHAHA!"
--- NOTE | 2017-01-14 01:10 | NUR ---
PRN PO GEODON INEFFECTIVE.
--- NOTE | 2017-01-14 01:26 | NUR ---
PT CONTINUES TO SCREAM " MAAM I WANT TO TALK TO SOMEONE WITH SOME FUCKING SENSE, WHAT IS THIS WHORE [employer]SE! I DONT WANT TO TALK TO YOU OLD LADY DOCTORS I WANT SOMEONE WITH SOME FUCKING SENSE, CALL MY GRANDFATHER YOU WHORES" "YOU KEEP WALKING BACK AND FORTH ACROSS THE STREET TRYING TO KILL ME" MULTIPLE STAFF ON MULTIPLE ATTEMPTS TO PROVIDE 1-1, FLUIDS, FOOD TOILITING, REPOSITIONING UNSUCCESSFULL.
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
--- NOTE | 2017-01-14 05:31 | NUR ---
PT SLEPT ONE HOUR AWOKE SCREAMING "CHINO, I'M DYING, I'M DYING IN HERE" PT TOILITED PROVIDED FLUIDS WHEN ATTEMPTED 1-1 PT BECAME COMBATIVE SCREAMING AND SWINGING AT STAFF "I'M NOT SUPPOSED TO BE HERE YOU HAVE TO CALL MY GRANDFATHER" "GOD NED IT I'M GOING TO KIET YOU ALL FOR EVERY SEEMA YOU HAVE" "GOD HELP ME GOD, GOD HELP ME, OH GOD NED, CHINO, CHINO I'M HERE AGAINST MY WILL THEY ARE TRYING TO KILL ME"
--- NOTE | 2017-01-14 06:31 | NUR ---
PT PROVIDED TOILITING OFFERED FOOD AND FLUIDS, PT CONTINUES TO THROW PILLOWS AND BLANKET AND SCREAM PROFANITIES. "NO ONE AROUND HERE SEEMS TO KNOW THAT I HAVE A 14 YEAR OLD BOY, I KNOW WHERE HE IS AT IN THE TRUNK" "CHINO YANGT YOUKNOW I'M CORKY SHEPARD!" PT BECAME COMBATIVE WITH NURSING STAFF WHEN ATTEMPTING TO OBTAIN BGM PT BEARED TEETH AND PULLED ARM BACK AND YELLED "FUCK YOU!". PT INFORMED THAT THAT LANGUAGE WOULD NOT BE TOLERATED AN APPROPRIATE BEHAVIOR. PT GAVE MIDDLE FINGER TO NURSE TO OBTAIN BLOOD SUGAR. RESULT 85. PT MEDICATION COMPLIANT WITH OUT DIFFICULTY. SLEPT 1 HOUR THROUGHOUT NIGHT UN ABLE TO REDIRECT
--- NOTE | 2017-01-14 06:52 | NUR ---
PT CONTINUES TO THROW BLANKET AND PILLOW ON FLOOR AND SCREAM "HELP ME, I'M GOING TO KIET YOU"
[2017-01-14 07:58] VITALS: BP 127/68
--- NOTE | 2017-01-14 08:44 | NUR ---
BS NOW 146, WILL ADMINISTER 0730 70/30 INSULIN AT THIS TIME.
--- NOTE | 2017-01-14 16:38 | NUR ---
CORKY IS ALERT AND ORIENTED TO SELF ONLY. POOR ST MEMORY NOTED ALONG WITH LT MEMORY. MOOD HAS BEEN STABLE THIS SHIFT, CONTINUES WITH PERIODS OF CONFUSION. ONLY YELLING OUT FOR STAFF WHEN HE IS IN NEED OF SOMETHING. NAPS INTERMITTENTLY THROUGHOUT THE DAY, HOWEVER, HAS BEEN LESS SO TODAY THAN YESTERDAY. NO HALLUCINATIONS OR DELUSIONS NOTED. CALM AND COOPERATIVE WITH STAFF. NO SEXUALLY INAPPRPOPRIATE BEHAVIORS NOTED. MEDICATION COMPLIANT WITHOUT DIFFICULTY. NO SI/HI VOICED. APPETITE GOOD FOR BREAKFAST AND LUNCH, ATE 100% OF BOTH. FED SELF BOTH MEALS INDEPENDENTLY AFTER SET UP BY STAFF. SITTING IN DINNING ROOM, WAITING FOR DINNER AT THIS TIME. TAKING FLUIDS WELL. CONTINENT OF B&B. RESPIRATIONS EASY AND EVEN. NO ACUTE DISTRESS NOTED.
--- NOTE | 2017-01-14 17:34 | NUR ---
Shift chart check completed.
[2017-01-14 20:00] VITALS: BP 120/66
--- NOTE | 2017-01-14 20:01 | NUR ---
PT TOILETED X3 SINCE BEGINING OF SHIFT AT 7PM. PT SCREAMING AND SWINGING AT STAFF WHEN ATTEMPTING TO PROVIDE CARE. UNABLE TO DEESCALATE PT BY NURSING STAFF, MILIEU OR NURSING MONOGRAM OPERATOR. PT 1-1 AT THIS TIME
--- NOTE | 2017-01-14 21:34 | NUR ---
PT CONTINUING TO YELL AT TOP OF LUNGS, WHEN 1-1 PROVIDED PT GRITS TEETH AND SWINGS AT STAFF. PRN VISTARIL INEFFECTIVE. PROVIDED ADDITIONAL SNACKS, FOOD AND FLUIDS, PROVIDING SCHEDULED TOILITING Q 30 MINUTES. SWEARING AT NURSING AND SWINGING AT SECURITY STAFF. PRN VISTARIL NOT EFFECTIVE
--- NOTE | 2017-01-14 22:30 | NUR ---
PT RESTING QUIETLY IN GERICHAIR NO COMBATIVE BEHAVIOR NOTED. PRN VISTARIL EFFECTIVE.
--- NOTE | 2017-01-15 06:20 | NUR ---
PT SLEPT IN BED FROM FROM 0200 TILL 0600. MINIMAL YELLING OUT IN COMPARISON TO PREVIOUS SHIFT. BGM 88 HOLD 70/30 UNTIL AFTER BREAKFAST.
[2017-01-15 08:08] VITALS: BP 113/64
--- NOTE | 2017-01-15 08:40 | NUR ---
TREATMENT TEAM WAS HELD WITHTHE FOLLOWING: DR. AVILA, FURNACE PROCESS PLANT OPERATOR, RNs, AT, SWs, AND DIRECTOR. PT TO BE DISCHARGED BACK TO [facility] [place].
[2017-01-15] MEDS ORDERED: QUETIAPINE FUM100 M3 PO (09:39)
[2017-01-15] MEDS ORDERED: HYDROXYZINE PAM25 M1 PO (09:39)
[2017-01-15] MEDS ORDERED: MEMANTINE HCL10 MG PO (09:39)
[2017-01-15] MEDS ORDERED: TRAZODONE150 MG PO (09:39)
[2017-01-15] MEDS ORDERED: RIVASTIGMINE1 EAC1 T (09:39)
[2017-01-15] MEDS ORDERED: DIVALPROEX SOD500 MG PO ×2 (09:39)
--- NOTE | 2017-01-15 10:20 | NUR ---
YO notified [facility] that Pt was being discharged today. Yo will come back with time of transportatio bean picker.
--- NOTE | 2017-01-15 10:22 | NUR ---
WESLEY notified Son/JURadha Taya Schmitt Jr that Pt was being discharged today back to [place]. WESLEY will call back with time of pickup.
--- NOTE | 2017-01-15 11:16 | NUR ---
PATIENT YELLING AND DECLINED THERAPY THIS DATE. CHIRAG STAHL/Cristina
--- NOTE | 2017-01-15 11:20 | NUR ---
MADE AWARE OF DISCHARGE THIS AM. PRN VISTARIL GIVEN AT THIS TIME D/T INCREASED ANXIETY RELATED TO DISCHARGE. UNABLE TO REDIRECT. WILL CONTINUE TO MONITOR FOR EFFECTIVENESS.
--- NOTE | 2017-01-15 11:35 | NUR ---
PATIENT IS ALERT AND CONFUSED PER USUAL. MEDICATION COMPLIANT WITHOUT DIFFICULTY. YELLS OUT OCCASIONALLY THROUGHOUT THE SHIFT, ABLE TO REDIRECT MOST OF THE TIME. INTERACTING WITH STAFF. ATTENDED AND PARTICIPATED SLIGHTLY IN AM GROUP THIS MORNING. NO HALLUCINATIONS OR DELUSIONS. NO SEXUALLY INAPPROPRIATE BEHAVIORS. AWARE OF VPA THIS MORNING. RESPIRATIONS EASY AND EVEN. NO ACUTE DISTESS NOTED.
--- NOTE | 2017-01-15 11:37 | NUR ---
Exercise/Trivia Exercise helps with mobility, circulation and staying active,trivia helps concentration,memory thinking and socialization Patient did attend group this morning Xs 2. Patient was remved from group in the begining due to yelling and inappropriate language. Patient returned later and acted appropriatly and even participated in the trivia
--- NOTE | 2017-01-15 14:16 | NUR ---
SW gave the Pattern Chart Writer information to schedule transportation for discharge today.
--- NOTE | 2017-01-15 14:17 | NUR ---
WESLEY notified Son Oskar that Ambulance was picking up Pt at noon. WESLEY will mail discharge papers for signature. Oskar said ok.
--- NOTE | 2017-01-15 14:18 | NUR ---
Yo left message for [facility] that pickup was scheduled for 12:30pm for Pt's return.
--- NOTE | 2017-01-15 14:18 | NUR ---
SW copied discharge paperwork for [facility] and Son Oskar. SW sent copies to [facility] and gave Son's copies to mail.
--- NOTE | 2017-01-15 14:21 | NUR ---
Pt was discharged back to [place]. Pt was happy to be returning. Pt was smiling when leaving the unit.
--- NOTE | 2017-01-15 15:36 | NUR ---
OCCUPATIONAL THERAPY CO-SIGN I approve of the Occupational Therapy notes written above. HOLLIE AZUL OTR/Cristina
--- NOTE | 2017-01-16 15:45 | NUR ---
Dark Room Attendant Note: mailed discharge envelope to patient's son, ema Negrete.
== END 2017-01-15 12:46 | disposition home or self-care (01) | DRG 884 ==
LOC: 3N 14:23
PROVIDERS: ADMIT Psychiatry & Neurology Psychiatry
DX: F01.51 Vascular dementia, unspecified severity, with behavioral disturbance (principal); G30.9 Alzheimer's disease, unspecified; I48.0 Paroxysmal atrial fibrillation; F02.81 Dementia in other diseases classified elsewhere, unspecified severity, with behavioral disturbance; F23 Brief psychotic disorder; F33.9 Major depressive disorder, recurrent, unspecified; M19.90 Unspecified osteoarthritis, unspecified site; I10 Essential (primary) hypertension; I25.10 Atherosclerotic heart disease of native coronary artery without angina pectoris; E66.3 Overweight; E78.5 Hyperlipidemia, unspecified; F48.2 Pseudobulbar affect; E11.9 Type 2 diabetes mellitus without complications; H91.90 Unspecified hearing loss, unspecified ear; I44.7 Left bundle-branch block, unspecified; Z98.42 Cataract extraction status, left eye; Z79.4 Long term (current) use of insulin; Z79.899 Other long term (current) drug therapy; Z72.89 Other problems related to lifestyle; Z98.41 Cataract extraction status, right eye; Z95.5 Presence of coronary angioplasty implant and graft; Z95.810 Presence of automatic (implantable) cardiac defibrillator; Z68.29 Body mass index [BMI] 29.0-29.9, adult